=== PATIENT | male | born 1950 | race Caucasian/White ===

== ENCOUNTER 2017-12-31 09:37 | Day surgery (SDC) | payer OTHER, SELFPAY ==
[2017-12-27 14:58] VITALS: BMI 28.0
[2017-12-31] VITALS (7 sets, daily range): BP systolic 136–177; BP diastolic 81–108; PULSE 87–101; RESP 14–20; TEMP 36.1–36.4; O2SAT 96–99; BMI 27.6
--- NOTE | 2017-12-31 | DI.RAD.S_ITS ---
PROCEDURE: XR LUMBAR SPINE 2-3V INDICATIONS: L2-3 DISCECTOMY TECHNIQUE: 2 views of the lumbar spine were acquired. COMPARISON: [facility], , MR LUMBAR SPINE WITHOUT CONTRAST, 12/19/2017, 17:11. [facility], CR, XR LUMBAR SPINE 2 OR 3 VIEWS, 12/23/2017, 13:23. FINDINGS: 2 fluoroscopy images demonstrates surgical probe posterior to the lumbar spine at the level of L2-L3. IMPRESSION: Surgical probe at the level of L2-L3. Dictated by: Hanane Brady M.D. on 12/31/2017 at 12:46 Approved by: Hanane Brady M.D. on 12/31/2017 at 12:48
[2017-12-31] MEDS: LACTATED RINGERS 1,000 ML 42 ML IV ×2 (10:08→12:30)
--- NOTE | 2017-12-31 10:54 | PM.PREOP ---
Pre-operative Note Interval Note Pre-op Check: Yes History & Physical Reviewed by Physician and Yes Exam Performed Changes: No
--- NOTE | 2017-12-31 10:55 | PM.OP.1 ---
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 They had failed conservative management and requested operative intervention. Risks and benefits of surgery were discussed and appropriate consents were obtained. Surgeon: Gustavo Cruz [employer]: Renee Sherman Anesthesia Type: General Operative Notes Findings: None Closure Type: primary Specimen(s): none sent Estimated Blood Loss (mL): 10 Procedure in detail: Patient was brought to the operating room and intubated on the table. They were rolled over on the well-padded prone position on the Tera table. A time-out was performed. Preoperative antibiotics were given. The back was prepped and draped in standard sterile fashion. Using fluoroscopy for localization, a 3 cm incision was made in the midline. We used Bovie to dissect through the lumbodorsal fascia and then subperiosteally dissect the paraspinal muscles off the well-marked left side. A marker was placed and x-ray was taken to confirm positioning. We then brought in the microscope. A left-sided hemilaminotomy and hemifacetectomy was performed at L2-3. We took care not to violate the pars and left a large lateral bony bridge. We carefully depressed the dura and reached to the opposite side to decompress the central canal. The dura was carefully retracted medially and the disc was exposed. Bipolar was used for hemostasis. We then performed an annulotomy with a scalpel and then a diskectomy with pituitary. This was a massive superiorly extruded disc that went up to the axilla above. We removed five very large fragments and it was cleared out. The ball probe was run into the disc space and under the annulus to make sure there were no further loose fragments. The ball probe was run below the dura to make sure there was no further pressure on the nerves. Everything was decompressed. The wound was irrigated. An epidural catheter was prepared with 8 mL of 0.25% Marcaine and 100 mcg of fentanyl. The dura was carefully depressed and the catheter was advanced 6 cm cephalad underneath remaining lamina without resistance. The fascia was then closed in layers. The epidural catheter was injected without complications. Vancomycin powder was placed in the wound. The superficial and the skin were closed. Sterile dressing was placed. Patient was rolled over extubated brought to recovery room with no complications. Complications: none Condition: stable Disposition: PACU Plan for aftercare: Outpatient. Limited bend twist and lift for 2 weeks then can start therapy.
[2017-12-31] MEDS: CEFAZOLIN 2 GM/100 ML FROZ.PIGGY IV (11:35)
--- NOTE | 2017-12-31 12:09 | SUR.OPER ---
Prone on spine table, head in foam head support, padded chest and pelvic supports, gel pad at knees, lower legs supported by pillows; nipples, genitalia and toes free of pressure, arms secured on foam padded arm boards at <90 degrees abduction. Tape over blanket at thigh secured to table.
[2017-12-31] MEDS: THROMBIN (BOVINE) 5,000 UNIT VIAL 5000 UNIT TOP (12:34)
[2017-12-31] MEDS: BUPIVACAINE 0.25% (PF) 8 ML, fentaNYL 100 MCG INJ (12:35)
== END 2017-12-31 15:20 | disposition home or self-care (01) ==
PROVIDERS: Visit Provider Orthopaedic Surgery
DX: M51.16 Intervertebral disc disorders with radiculopathy, lumbar region (principal); M43.16 Spondylolisthesis, lumbar region; Z87.891 Personal history of nicotine dependence
CPT/HCPCS: 63047; 72100; 76000; J0330; J0690; J1100; J2405; J2704; J3010